=== PATIENT | female | born 1990 ===

== ENCOUNTER 2020-02-08 11:06 | Outpatient (REF) | payer OTHER, MEDICAID, SELFPAY ==
[2020-02-08 16:54] LABS: COVID-19 Test Negative (Negative)
== END 2020-02-08 11:07 | disposition home or self-care (01) ==
LOC: HO.LAB 11:06
PROVIDERS: PCP Nurse Practitioner Family; Visit Provider Internal Medicine
DX: Z20.828 Contact with and (suspected) exposure to other viral communicable diseases (principal)
CPT/HCPCS: 36415; 87635

== ENCOUNTER 2020-02-11 08:16 | Outpatient (REF) | payer OTHER, MEDICAID, SELFPAY ==
[2020-02-11 13:53] LABS: CT PCR NOT DETECTED (Not Detect.); NG PCR NOT DETECTED (Not Detect.)
[2020-02-12 12:00] LABS: BV Int Neg Control Negative (Negative); BV Int Pos Control Positive (Positive)
== END 2020-02-11 08:17 | disposition home or self-care (01) ==
LOC: HO.LNP 08:16
PROVIDERS: PCP Nurse Practitioner Family; Referring Provider Nurse Practitioner Family; Visit Provider Obstetrics & Gynecology
DX: Z34.03 Encounter for supervision of normal first pregnancy, third trimester (principal); Z11.3 Encounter for screening for infections with a predominantly sexual mode of transmission; Z80.3 Family history of malignant neoplasm of breast; Z3A.36 36 weeks gestation of pregnancy
CPT/HCPCS: 87081; 87480; 87491; 87510; 87591; 87660

== ENCOUNTER → 2020-02-19 08:33 | Outpatient (BNVA) | payer OTHER, MEDICAID, SELFPAY | PROVIDERS: PCP Nurse Practitioner Family; Visit Provider Advanced Practice Midwife | DX: Z76.89 Persons encountering health services in other specified circumstances (principal) ==

== ENCOUNTER → 2020-02-25 08:19 | Outpatient (BNVA) | payer OTHER, MEDICAID, SELFPAY | PROVIDERS: PCP Nurse Practitioner Family; Visit Provider Advanced Practice Midwife | DX: Z76.89 Persons encountering health services in other specified circumstances (principal) ==

== ENCOUNTER → 2020-03-03 08:32 | Outpatient (BNVA) | payer OTHER, MEDICAID, SELFPAY | PROVIDERS: Visit Provider Advanced Practice Midwife | DX: O36.8130 Decreased fetal movements, third trimester, not applicable or unspecified (principal); O99.891 Other specified diseases and conditions complicating pregnancy; M25.561 Pain in right knee; M25.562 Pain in left knee; O36.8330 Maternal care for abnormalities of the fetal heart rate or rhythm, third trimester, not applicable or unspecified; Z3A.39 39 weeks gestation of pregnancy | CPT/HCPCS: 59025 ==

== ENCOUNTER 2020-03-03 14:50 | Outpatient (REF) | payer OTHER, MEDICAID, SELFPAY ==
--- NOTE | 2020-03-03 14:55 | US_ITS ---
EXAMINATION: US OBSTETRICAL (BIOPHYSICAL PROFILE) CLINICAL INFORMATION: Decreased movements. Assess BPP COMPARISON: Obstetrical ultrasound 10/09/2019, 08/21/2019 TECHNIQUE: Ultrasound of the pelvis is performed. Biophysical profile is performed over 30 minutes with assessment of breathing, gross body movement, tone, and qualitative amniotic fluid volume. Each matrix is scored 0 or 2, depending if the metric is present. Maximum total score possible is 8. Examination is not intended to assess for anomalies. FINDINGS: POSITION: Cephalic PLACENTA: Posterior AMNIOTIC FLUID INDEX: 12.5 cm CARDIAC ACTIVITY: 135 beats per minute BIOPHYSICAL PROFILE: Motion: 2 Tone: 2 Breathin Amniotic Fluid: 2 Total score: 8 US/US OB biophysical profile IMPRESSION: 1. Single intrauterine gestation in cephalic position with posterior placenta. 2. Total biophysical score is 8 (scale 0-8). 3. Amniotic fluid index 12.5 cm. 4. cardiac activity 135 beats per minute.
== END 2020-03-03 14:51 | disposition home or self-care (01) ==
LOC: HO.US 14:50
PROVIDERS: PCP Nurse Practitioner Family; Visit Provider Advanced Practice Midwife
DX: O36.8190 Decreased fetal movements, unspecified trimester, not applicable or unspecified (principal); Z3A.00 Weeks of gestation of pregnancy not specified
CPT/HCPCS: 76819

== ENCOUNTER 2020-03-08 08:17 | Outpatient (REF) | payer OTHER, MEDICAID, SELFPAY ==
--- NOTE | 2020-03-08 10:46 | US_ITS ---
EXAMINATION: ULTRASOUND OB BIOPHYSICAL PROFILE. CLINICAL INFORMATION: Postterm, mild variable deceleration with NST. COMPARISON: None TECHNIQUE: Routine grayscale imaging of pelvis was performed. FINDINGS: The fetus is in cephalic position with posterior placenta grade 3. Biophysical profile is 8/8. heart rate measures 142 bpm MONISHA is 12.74. US/US OB biophysical profile IMPRESSION: Single live intrauterine fetus in cephalic position. The biophysical profile is 8/8 .
== END 2020-03-08 08:18 | disposition home or self-care (01) ==
LOC: HO.US 08:17
PROVIDERS: PCP Nurse Practitioner Family; Referring Provider Nurse Practitioner Family; Visit Provider Advanced Practice Midwife
DX: O48.0 Post-term pregnancy (principal)
CPT/HCPCS: 59025; 76819

== ENCOUNTER 2020-03-11 13:00 | Outpatient (REF) | payer OTHER, MEDICAID, SELFPAY ==
--- NOTE | ~2020-03-11 | US_ITS ---
EXAMINATION: OBSTETRICAL ULTRASOUND, Follow up HISTORY: 41-year-old at the 22.3 weeks of gestation AMA Follow-up anatomy COMPARISON: 02/12/2020 TECHNIQUE: Real time transabdominal imaging with color and M-mode Doppler. PRESENTATION: Vertex PLACENTA LOCATION: Right lateral without previa AMNIOTIC FLUID: Normal MEASUREMENTS: 1. Biparietal Diameter: 5.44 cm; 22.4 wks 2. Head Circumference: 20.8 cm; 23.0 wks 3. Abdominal Circumference: 18.0 cm; 23.0 wks 4. Femur Length: 4.2 cm; 23.5 wks 5. Heart Rate: 147 beats per minute WEIGHT: Estimated weight is 567 grams (1 lbs 4 oz) -- 79 %. Normal views of lateral cerebral ventricle, profile, nose/lips, 4ch view, LVOT, RVOT, three-vessel view, 3 vessel trachea view, ductal and aortic arches, spine and gender. Synechiae noted in the lower uterine segment. Cervix measured 4.1 cm on transabdominal view. GESTATIONAL AGE: 1. Established GA: 22.3 wks 2. GA from AUA: 23.1 wks ESTIMATED DATE OF DELIVERY: 1. Established EUFEMIA: 07/12/2020 2. EUFEMIA from AUA: 07/07/2020 US/US OB follow up IMPRESSION: 1. A single fetus with appropriate interval growth. 2. Previously limited views of the anatomy were seen as listed above. No abnormalities were noted in visualized anatomy. 3. This completes the survey. 4. 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 She had the low risk serum aneuploidy screening. I reassured her that the uterine synechiae are associated with benign OB outcome. She had the 2 full-term vaginal deliveries. She was informed that the baseline instance of congenital abnormalities and defects in the general population is approximately 3-5%. Not all these conditions are diagnosable in utero. RECOMMENDATIONS: 1. An interval growth evaluation at approximately 24 weeks is suggested. (Not scheduled) Thank you very much for this referral. Visiting time 25 minutes. Majority of this visit was spent reviewing the ultrasound findings as well as her care.
== END 2020-03-11 13:01 | disposition home or self-care (01) ==
LOC: HO.US 13:00
PROVIDERS: PCP Nurse Practitioner Family; Visit Provider Advanced Practice Midwife
DX: O48.0 Post-term pregnancy (principal); Z3A.00 Weeks of gestation of pregnancy not specified
CPT/HCPCS: 76816

== ENCOUNTER → 2020-04-25 10:30 | Outpatient (BNVA) | payer OTHER, MEDICAID, SELFPAY | PROVIDERS: PCP Nurse Practitioner Family; Visit Provider Advanced Practice Midwife | DX: Z76.89 Persons encountering health services in other specified circumstances (principal) ==

== ENCOUNTER 2020-07-25 08:23 | Outpatient (REF) | payer OTHER, MEDICAID, SELFPAY ==
[2020-07-25 13:12] LABS: CT PCR NOT DETECTED (Not Detect.); NG PCR NOT DETECTED (Not Detect.)
== END 2020-07-25 08:24 | disposition home or self-care (01) ==
LOC: HO.LAB 08:23
PROVIDERS: PCP Nurse Practitioner Family; Visit Provider Advanced Practice Midwife
DX: Z01.419 Encounter for gynecological examination (general) (routine) without abnormal findings (principal); Z20.2 Contact with and (suspected) exposure to infections with a predominantly sexual mode of transmission
CPT/HCPCS: 81025; 87491; 87591

== ENCOUNTER 2021-07-27 08:55 | Outpatient (REF) | payer OTHER, SELFPAY ==
[2021-07-27 21:42] LABS: CT PCR NOT DETECTED (Not Detect.); NG PCR NOT DETECTED (Not Detect.)
[2021-07-28 09:00] LABS: BV Int Neg Control Negative (Negative); BV Int Pos Control Positive (Positive)
[2021-07-29 17:17] LABS: HPV mRNA E6/E7 rflx Not Detected (Not Detected)
== END 2021-07-27 08:56 | disposition home or self-care (01) ==
LOC: HO.LAB 08:55
PROVIDERS: PCP Nurse Practitioner Family; Visit Provider Advanced Practice Midwife
DX: Z01.419 Encounter for gynecological examination (general) (routine) without abnormal findings (principal); Z11.51 Encounter for screening for human papillomavirus (HPV); Z20.2 Contact with and (suspected) exposure to infections with a predominantly sexual mode of transmission
CPT/HCPCS: 81025; 87480; 87491; 87510; 87591; 87624; 87660; 88142

== ENCOUNTER → 2021-08-14 12:08 | Outpatient (BNVA) | payer OTHER, SELFPAY | PROVIDERS: PCP Nurse Practitioner Family; Visit Provider Advanced Practice Midwife | DX: Z30.09 Encounter for other general counseling and advice on contraception (principal) | CPT/HCPCS: Q3014 ==

== ENCOUNTER 2022-12-04 09:07 | Outpatient (REF) | payer OTHER, SELFPAY ==
[2022-12-04 12:35] LABS: Thyroid Stimulating Hormone 0.47 uIU/mL (0.32-4.0)
[2022-12-05 04:25] LABS: CT PCR NOT DETECTED (Not Detect.); NG PCR NOT DETECTED (Not Detect.)
[2022-12-05 15:33] LABS: BV Int Neg Control Negative (Negative); BV Int Pos Control Positive (Positive)
[2022-12-05 18:30] LABS: DHEA Sulfate 203 mcg/dL (19-237); Follicle Stimulating Hormone 9.7 mIU/mL; Prolactin 6.5 ng/mL
[2022-12-08 17:34] LABS: Testosterone, Free 3.6 pg/mL (0.1-6.4); Testosterone, Total 20 ng/dL (2-45)
== END 2022-12-04 09:08 | disposition home or self-care (01) ==
LOC: HO.LAB 09:07
PROVIDERS: PCP Nurse Practitioner Family; Visit Provider Advanced Practice Midwife
DX: N92.6 Irregular menstruation, unspecified (principal); L68.0 Hirsutism; Z20.2 Contact with and (suspected) exposure to infections with a predominantly sexual mode of transmission
CPT/HCPCS: 0353U; 82627; 83001; 83498; 84146; 84402; 84403; 84443; 87480; 87510; 87660

== ENCOUNTER 2022-12-04 09:07 | Outpatient (AMB) | payer OTHER, SELFPAY ==
--- NOTE | 2022-12-04 09:09 | A.OFFVIS_ITS ---
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 Scribed for PEACE Thompson by Juli Moon medical parasitologist, on 12/04/2022 at 9:20 am EST. Corporate Coordinator: Corporate Coordinator Present (Ling) Allergies No Known Allergies Allergy (Verified 12/04/22 09:10) Is last menstrual period known: Yes Last menstrual period: 11/22/22 HPI HPI Comments History of Present Illness Details She is a premenopausal woman presenting for annual exam. She is still interested in Mirena and had troubling scheduling for insertion in office within the past couple of months. Reports cysts in groin area. Reports having hirsutism from since her 20's and believes its due to BC in her past. She denies having PCOS testing in the past. Irregular menses which tend to come 3-5 days late every cycle. Also she reports low libido. She admits to eating healthy and tries to stay active with exercise. Denies vaginal itching and irritation. STD screening offered; she accepts. Denies family hx of colon and ovarian cancer. Last pap smear 07/27/21. [facility] Medical History control counseling Hirsutism Irregular menses Low libido Migraine with aura Morbid obesity Family History Paternal Grandmother Breast cancer Maternal Grandfather Diabetes mellitus Social History Alcohol intake: never Sexual orientation: Straight/Heterosexual Gender identity: Female Female Reproductive History Menstrual Age of Menarche: 13 Date of last menstrual period: 11/22/22 control method: none Total pregnancies: 2 Full term: 1 Number of Living Children: 1 Date of last pap smear: 07/27/21 (neg pap and hpv) Physical Exam Vital Signs: Last Vital Signs BP 124/80 12/04/22 09:10 BMI result Body Mass Index 37.4 Const General: cooperative, healthy appearing, no acute distress, well developed and alert Orientation/consciousness: patient oriented x3 HEENT Other: facial hair growth Head: Yes normal to inspection Eyes General: appearance normal, both eyes and all related structures Neck Neck: Yes normal visual inspection Thyroid: Thyroid normal Chest Chest palpation & inspection: normal inspection of the chest Breast/axilla inspection: normal inspection of the breasts (no puckering, dimpling, peau de orange, retraction, discharge, masses) Breast/axilla palpation: normal palpation of the breasts Resp Effort & Inspection: normal respiratory effort GI Other: low transverse scarring Inspection: Yes normal to inspection Palpation (GI): Soft to palpation (to palpation) Rectal Exam - Female: deferred Other: upper inner right thigh and gluteal area small folliculitis lesion; no drainage General: Yes bladder normal to inspection External Female Exam: normal external appearance and normal appearance of the urethra Speculum Exam - Vagina: normal appearance of the vagina, normal palpation and normal vaginal discharge Speculum Exam - Cervix: normal appearance of the cervix and normal palpation Bimanual exam- vagina & uterus: normal palpation and normal palpation Bimanual Exam- Adnexa, other: normal adnexae and no masses Skin General skin exam: no rashes or lesions noted Neuro General: patient oriented x3 Cognition (Neuro): normal cognition Extrem General: Yes normal to inspection Psych Attitude: cooperative Thought process: Normal thought process present Assessment & Plan Assessment & Plan (1) Encounter for annual routine gynecological examination: Code(s): Z01.419 - Encounter for gynecological examination (general) (routine) without abnormal findings Plan: Discussed: Current recommendations for pap smears per ASCCP guidelines Breast awareness and periodic self breast exams. Maintaining a healthy lifestyle including a well balanced diet and routine exercise. Encouraged to use condoms for STD and prevention. Reviewed IUD insertion procedure and instructed to take ibuprofen with food 1 hour prior to procedure. Contact office when having next menses. Advised to wash groin area with antimicrobial soap, rinse, dry well and wear cotton underwear. PCOS workup labs/US ordered. Follow up for lab results and to discuss low libido in person. BV testing and GC/CT panel done today. Await results and treat accordingly. All of her questions and concerns were addressed to the best of my ability. RTO in one year for AG. (2) control counseling: Code(s): Z30.09 - Encounter for other general counseling and advice on contraception (3) Low libido: Code(s): R68.82 - Decreased libido (4) Hirsutism: Code(s): L68.0 - Hirsutism (5) Irregular menses: Code(s): N92.6 - Irregular menstruation, unspecified Orders: Orders Bacterial Vaginosis Panel Today Z20.2 - Contact with and (suspected) exposure to infections with a predominantly sexual mode of transmission CT NG by PCR Today Z20.2 - Contact with and (suspected) exposure to infections with a predominantly sexual mode of transmission 17 Hydroxyprogesterone Today L68.0 - Hirsutism, N92.6 - Irregular menstruation, unspecified DHEA Sulfate Today L68.0 - Hirsutism, N92.6 - Irregular menstruation, unspecified Testosterone, Free/Total Today L68.0 - Hirsutism, N92.6 - Irregular menstruation, unspecified Follicle Stimulating Hormone Today L68.0 - Hirsutism, N92.6 - Irregular menstruation, unspecified Prolactin Today L68.0 - Hirsutism, N92.6 - Irregular menstruation, unspecified Thyroid Stimulating Hormone Today L68.0 - Hirsutism, N92.6 - Irregular menstruation, unspecified US pelvic and transvaginal Today L68.0 - Hirsutism, N92.6 - Irregular menstruation, unspecified Coding Level of Care Code Est Pt Prev Care 18-39y(13136) Diagnoses Encounter for annual routine gynecological examination Z01.419 control counseling Z30.09 Low libido R68.82 Hirsutism L68.0 Irregular menses N92.6
--- OUTSIDE RECORDS SUMMARY | 2022-12-04 09:09 | XMS_ITS | Continuity of Care Document ---
Author Name Unknown Organization [facility] Address [address] [place] [address]- Care Team Providers Care Right Of Way Buyer Name Role Phone Alana KNIGHT, Tatianna Primary Care Physician Encounter [facility] [place] Date(s): 08/31/21 - 09/07/21 [facility] [address] [place] [address]- Encounter Diagnosis Severe obesity(Discharge Diagnosis) - 08/31/21 Attending Physician: Megan Rodarte NP Allergies, Adverse Reactions, Alerts No Known Medication Allergies Immunizations Given and Recorded Vaccine Date Status Refusal Reason tetanus/diphtheria/pertussis, acel(Tdap) 12/16/19 Recorded Measles/Mumps/Rubella Virus Vaccine 07/30/16 Recor ded Measles/Mumps/Rubella Virus Vaccine 02/01/12 Recor ded Human Papillomavirus Vaccine 02/01/12 Recorded Medications No Known Medications Problem List Condition Effective Dates Status Health Status Inform ant Severe obesity(Confirmed) Active Diagnosis Diagnosis Type Effective Dates Health Status Cl inical Service Informant Severe obesity Discharge Diagnosis 08/31/21 Vital Signs Most recent to oldest [Reference Range]: 1 Height 166 cm (08/31/21 10:17 AM) Weight 111.5 kg (08/31/21 10:17 AM) Body Mass Index [18.5-24.99] 40.46 *>HHI* (08/31/21 10:17 AM) Weight Obtained Via Patient/family state d (08/31/21 10:17 AM) Social History Social History Type Response Smoking Status Former smoker, quit more than 30 days ago; Other: On and off; entered on: 01/02/21 Sex
--- OUTSIDE RECORDS SUMMARY | 2022-12-04 09:09 | XMS_ITS | Continuity of Care Document ---
Author Name Unknown Organization [facility] Address [address] [place] [address]- Care Team Providers Care Automotive Maintenance Technician Name Role Phone Tatianna Warner NP Primary Care Physician [place] [facility] [place]21 - 01/04/22 [facility] [address] [place], [place] [address] Allergies, Adverse Reactions, Alerts No Known Medication Allergies Immunizations Given and Recorded Vaccine Date Status Refusal Reason tetanus/diphtheria/pertussis, acel(Tdap) 12/16/19 Recorded Measles/Mumps/Rubella Virus Vaccine 07/30/16 Recor ded Measles/Mumps/Rubella Virus Vaccine 02/01/12 Recor ded Human Papillomavirus Vaccine 02/01/12 Recorded Medications Right Wrist Brace Right Wrist Brace, See Instructions, # 1 each, Refills 0, Tot. Refills 0, Maintenance, Dx: Right Wrist Pain/tendonitis, 12/04/21 16:55:00 EDT, Supply Start Date: 12/04/21 Status: Ordered Problem List Condition Effective Dates Status Health Status Inform ant Severe obesity(Confirmed) Active Social History Social History Type Response Smoking Status Former smoker, quit more than 30 days ago; Other: On and off; entered on: 01/02/21 Sex Care Team Personnel Name: Tatianna Warner NP Address: [address] [place] [id number]
--- OUTSIDE RECORDS SUMMARY | 2022-12-04 09:09 | XMS_ITS | Continuity of Care Document ---
Author Name Unknown Organization [facility] Address [address] [place] [address]- Care Team Providers Care Group Marketing Vp Name Role Phone Tatianna Warner NP Primary Care Physician [phone] [place] [facility] [place] 03/13/21 - 03/20/21 [facility] [address] [place] [address]- Encounter Diagnosis Generalized headaches(Discharge Diagnosis) - 03/13/21 Weight gain(Discharge Diagnosis) - 03/13/21 Attending Physician: Tatianna Warner NP Allergies, Adverse Reactions, Alerts No Known Medication Allergies Immunizations Given and Recorded Vaccine Date Status Refusal Reason tetanus/diphtheria/pertussis, acel(Tdap) 12/16/19 Recorded Measles/Mumps/Rubella Virus Vaccine 07/30/16 Recor ded Measles/Mumps/Rubella Virus Vaccine 02/01/12 Recor ded Human Papillomavirus Vaccine 02/01/12 Recorded Medications norethindrone 0.35 mg oral tablet 0 Refills, Maintenance, 01/02/21 16:13:00 EDT, Partial fill upon patient request if the prescription is for a schedule II opioid drug. Start Date: 01/02/21 Status: Ordered Problem List Diagnosis Diagnosis Type Effective Dates Health Status Clinical Service Informant Generalized headaches Discharge Diagnosis 03/13/21 Weight gain Discharge Diagnosis 03/13/21 Vital Signs Most recent to oldest [Reference Range]: 1 2 Height 166 cm (03/13/21 9:21 AM) 166 cm (03/13/21 9:20 AM) Weight 102.5 kg (03/13/21 9:21 AM) 102.5 kg (03/13/21 9:07 AM) Oxygen Saturation [94-100 %] 100 % (03/13/21 9:07 AM) Pulse Rate [55-90 bpm] 98 bpm *H* (03/13/21 9:07 AM) Body Mass Index [18.5-24.99] 37.2 *>HHI* (03/13/21 9:21 AM) Blood Pressure [90-138/55-84 mm Hg] 100/ 60mm Hg (03/13/21 9:07 AM) Temperature [96.8-100.4 DegF] 98.2 DegF (03/13/21 9:07 AM) Mode of Delivery (Oxygen) Room air (03/13/21 9:07 AM) Blood pressure sites Arm, right (03/13/21 9:07 AM) Temperature Route Oral (03/13/21 9:07 AM) Weight Obtained Via Standing scale (03/13/21 9:07 AM) Social History Social History Type Response Smoking Status Former smoker, quit more than 30 days ago; Other: On and off; entered on: 01/02/21 Sex
--- OUTSIDE RECORDS SUMMARY | 2022-12-04 09:09 | XMS_ITS | Continuity of Care Document ---
Author Name Unknown Organization [facility] Address [address] [place] [address]- Care Team Providers Care Tool And Die Assembler Name Role Phone Tatianna Warner NP Primary Care Physician Encounter [facility] [place] Date(s): 12/04/21 - 12/11/21 [facility] [address] [place] [address]- Encounter Diagnosis Left knee injury(Discharge Diagnosis) - 12/04/21 Left knee pain(Discharge Diagnosis) - 12/04/21 Right wrist pain(Discharge Diagnosis) - 12/04/21 Attending Physician: Angelica Pritchard MD Allergies, Adverse Reactions, Alerts No Known Medication [...] Dates Health Status Cl inical Service Informant Left knee injury Discharge Diagnosis 12/04/21 Left knee pain Discharge Diagnosis 12/04/21 Right wrist pain Discharge Diagnosis 12/04/21 Vital Signs Most recent to oldest [Reference Range]: 1 Height 166 cm (12/04/21 4:30 PM) Social History Social History Type Response Smoking Status Former smoker, quit more than 30 days ago; Other: On and off; entered on: 01/02/21 Sex
--- OUTSIDE RECORDS SUMMARY | 2022-12-04 09:09 | XMS_ITS | Continuity of Care Document ---
Author Name Unknown Organization [facility] Address [address] [place] [address]- Care Team Providers Care Union Representative Name Role Phone Tatianna Warner NP Primary Care Physician [place] [facility] [place](s): 07/28/21 - 08/27/[address] [facility] [address] [place] [address]- Allergies, Adverse Reactions, Alerts No Known Medication [...] opioid drug. Start Date: 01/02/21 Status: Ordered Social History Social History Type Response Smoking Status Former smoker, quit more than 30 days ago; Other: On and off; entered on: 01/02/21 Sex
--- OUTSIDE RECORDS SUMMARY | 2022-12-04 09:09 | XMS_ITS | Continuity of Care Document ---
Author Name Unknown Organization [facility] Address [address] [place] [address]- Care Team Providers Care Lipcoat Sprayer Name Role Phone Tatianna Warner NP Primary Care Physician [place] [facility] [place] 12/18[place]21 - 01/17/22 [facility] [address] [place] [address]- Allergies, Adverse Reactions, Alerts No Known Medication [...] Team Personnel Name: Tatianna Warner NP Address: [address] [place] [address]-
--- OUTSIDE RECORDS SUMMARY | 2022-12-04 09:09 | XMS_ITS | Continuity of Care Document ---
Author Name Unknown Organization [facility] Address [address] [place] [address]- Care Team Providers Care Partner Integration Planner Name Role Phone Tatianna Warner NP Primary Care Physician [place] [facility] [place]16[place] 01/26/21 [facility] [address] [place] [address]- Attending Physician: Not on Staff, Attending MD Allergies, Adverse Reactions, Alerts No Known [...]
--- OUTSIDE RECORDS SUMMARY | 2022-12-04 09:09 | XMS_ITS | Continuity of Care Document ---
Author Name Unknown Organization [facility] Address [address] [place] [address]- Care Team Providers Care Pharmacists Name Role Phone Tatianna Warner NP Primary Care Physician [place] [facility] [place] 01/02[place] 01/09/21 [facility] [address] [place] [address]- Encounter Diagnosis Right knee pain(Discharge Diagnosis) - 01/02/21 Weight gain(Discharge Diagnosis) - 01/02/21 Attending Physician: Tatianna Warner NP Allergies, Adverse [...] Dates Health Status Cl inical Service Informant Right knee pain Discharge Diagnosis 01/02/21 Weight gain Discharge Diagnosis 01/02/21 Social History Social History Type Response Smoking Status Former smoker, quit more than 30 days ago; Other: On and off; entered on: 01/02/21 Sex
--- OUTSIDE RECORDS SUMMARY | 2022-12-04 09:09 | XMS_ITS | Continuity of Care Document ---
Author Name Unknown Organization [facility] Address [address] [place] [address]- Care Team Providers Care Echo Vascular Technologist Name Role Phone Tatianna Warner NP Primary Care Physician [place] [facility] [place] 12/04/21 - 01/03/22 [facility] [address] [place] [address]- Attending Physician: Jennifer Champion Admitting Physician: AdmtrJennifer Referring Physician: Admtr ArHaris Allergies, Adverse Reactions, Alerts No Known Medication [...] Team Personnel Name: Tatianna Warner NP Address: [address] [place] [id number]
--- OUTSIDE RECORDS SUMMARY | 2022-12-04 09:09 | XMS_ITS | Continuity of Care Document ---
Author Name Unknown Organization [facility] Address [address] [place] [address]- Care Team Providers Care System Trainer Name Role Phone Not on Staff, PCP Primary Care Physician Unavail able Encounter [facility] Date(s): 11/17/20 - 12/17/20 [facility] [address] [place] [address]-
--- OUTSIDE RECORDS SUMMARY | 2022-12-04 09:09 | XMS_ITS | Continuity of Care Document ---
Author Name Unknown Organization [facility] Address [address] [place] [address]- Care Team Providers Care Service Secretary Name Role Phone Tatianna Warner NP Primary Care Physician Encounter [facility] Date(s): 08/31/21 - 09/30/21 [facility] [address] [place] [address]- Attending Physician: Jennifer Champion Admitting Physician: Jennifer Champion Referring Physician: Jennifer Champion Allergies, Adverse Reactions, Alerts No Known Medication Allergies Immunizations Given and Recorded Vaccine Date Status Refusal Reason tetanus/diphtheria/pertussis, acel(Tdap) 12/16/19 Recorded Measles/Mumps/Rubella Virus Vaccine 07/30/16 Recor ded Measles/Mumps/Rubella Virus Vaccine 02/01/12 Recor ded Human Papillomavirus Vaccine 02/01/12 Recorded Problem List Condition Effective Dates Status Health Status Inform ant Severe obesity(Confirmed) Active Social History Social History Type Response Smoking Status Former smoker, quit more than 30 days ago; Other: On and off; entered on: 01/02/21 Sex
[2022-12-04 09:10] VITALS: BP 124/80; BMI 37.4
--- OUTSIDE RECORDS SUMMARY | 2022-12-04 09:10 | XMS_ITS | Continuity of Care Document ---
Author Name Unknown Organization [facility] Address [address] [place] [address]- Care Team Providers Care Grey Goods Marker Name Role Phone Tatianna Warner NP Primary Care Physician [phone] Encounter [facility] Date(s): 04/18/21 - 05/18/21 [facility] [address] [place] [address]- Allergies, Adverse Reactions, Alerts No Known Medication [...]
--- OUTSIDE RECORDS SUMMARY | 2022-12-04 09:10 | XMS_ITS | Continuity of Care Document ---
Author Name Unknown Organization [facility] [place] [facility] Address [address] [place] [address]- Care Team Providers Care Site Superintendent Name Role Phone Tatianna Warner NP Primary Care Physician [phone] Encounter [facility] Date(s): 04/12/21 - 05/12/21 [facility] [address] [place] [address]- Allergies, Adverse Reactions, Alerts No Known Medication [...]
--- OUTSIDE RECORDS SUMMARY | 2022-12-04 09:10 | XMS_ITS | Continuity of Care Document ---
Author Name Unknown Organization [facility] Address [address] [place] [address]- Care Team Providers Care Tool Straightener Name Role Phone Tatianna Warner NP Primary Care Physician Encounter [facility] [place](s): 01/13/21 - 01/20/21 [facility] [address] [place] [address]- Encounter Diagnosis Well adult exam(Discharge Diagnosis) - 01/13/21 Frequent headaches(Discharge Diagnosis) - 01/14/21 Bilateral knee pain(Discharge Diagnosis) - 01/14/21 Weight gain(Discharge Diagnosis) - 01/14/21 Attending Physician: Katelyn Heard MD Referring Physician: Tatianna Warner NP Allergies, Adverse Reactions, [...] Dates Health Status Cl inical Service Informant Well adult exam Discharge Diagnosis 01/13/21 Frequent headaches Discharge Diagnosis 01/14/21 Bilateral knee pain Discharge Diagnosis 01/14/21 Weight gain Discharge Diagnosis 01/14/21 Vital Signs Most recent to oldest [Reference Range]: 1 Weight 103.2 kg (01/13/21 8:34 AM) Oxygen Saturation [94-100 %] 97 % (01/13/21 8:34 AM) Pulse Rate [55-90 bpm] 80 bpm (01/13/21 8:34 AM) Blood Pressure [90-138/55-84 mm Hg] 98/5 6mm Hg (01/13/21 8:34 AM) Mode of Delivery (Oxygen) Room air (01/13/21 8:34 AM) Blood pressure sites Arm, left (01/13/21 8:34 AM) Weight Obtained Via Standing scale (01/13/21 8:34 AM) Social History Social History Type Response Smoking Status Former smoker, quit more than 30 days ago; Other: On and off; entered on: 01/02/21 Sex
--- OUTSIDE RECORDS SUMMARY | 2022-12-04 09:10 | XMS_ITS | Continuity of Care Document ---
Author Name Unknown Organization [facility] Address [address] [place] [address]- Care Team Providers Care Lottery Clerk Name Role Phone Tatianna Warner NP Primary Care Physician [phone] [place] [facility] [place] 03/13/21 - 04/12/21 [facility] [address] [place], [place] [address] Attending Physician: Jennifer Champion Admitting Physician: Jennifer Champion Referring Physician: AdmtrJennifer Allergies, Adverse Reactions, Alerts No Known Medication [...]
--- OUTSIDE RECORDS SUMMARY | 2022-12-04 09:10 | XMS_ITS | Continuity of Care Document ---
Author Name Unknown Organization [facility] Adult Address [address] [place] [address]- Care Team Providers Care Bacteriologist Industrial Name Role Phone Tatianna Warner NP Primary Care Physician Encounter [facility] Date(s): 08/22/21 - 09/21/21 [facility] [address], [place] [address] Allergies, Adverse Reactions, Alerts No Known Medication [...]
--- OUTSIDE RECORDS SUMMARY | 2022-12-04 09:10 | XMS_ITS | Continuity of Care Document ---
Author Name Unknown Organization [facility] Adult Address [address] [place] [address]- Care Team Providers Care Kier Hand Name Role Phone Tatianna Warner NP Primary Care Physician [phone] Encounter [facility] Date(s): 01/10/21 - 02/09/21 [facility] [address] [place] [address]- Allergies, Adverse Reactions, Alerts No Known Medication [...]
== END 2022-12-04 09:57 | disposition home or self-care (01) ==
LOC: HO.HWS 09:07
PROVIDERS: PCP Nurse Practitioner Family; Visit Provider Advanced Practice Midwife
DX: Z01.419 Encounter for gynecological examination (general) (routine) without abnormal findings (principal); R68.82 Decreased libido; L68.0 Hirsutism; N92.6 Irregular menstruation, unspecified
CPT/HCPCS: 99395

== ENCOUNTER 2022-12-04 09:36 | Outpatient (REF) | payer OTHER, SELFPAY | END 2022-12-04 09:37 | disposition home or self-care (01) | LOC: HO.LNP 09:36 | PROVIDERS: Visit Provider Advanced Practice Midwife | DX: Z13.89 Encounter for screening for other disorder (principal) ==

== ENCOUNTER 2022-12-07 13:07 | Outpatient (REF) | payer OTHER, SELFPAY ==
--- NOTE | ~2022-12-07 | US_ITS ---
EXAMINATION: US PELVIS COMPLETE US PELVIS ENDOVAGINAL CLINICAL INFORMATION: Irregular menstruation COMPARISON: None. TECHNIQUE: Transabdominal and transvaginal images of the pelvis were obtained. FINDINGS: UTERUS: Anteverted. Normal size and contour, measuring 8.0 x 4.4 x 4.9 cm (cervix to fundus x AP x transverse). Uniform, homogeneous endometrium measures 0.8 cm in width. RIGHT OVARY: Normal size and echogenicity measuring 3.8 x 2.8 x 3.0 cm, volume 6.7 mL. Follicles noted in the right ovary. LEFT OVARY: Normal size and echogenicity measuring 3.1 x 1.8 x 2.4 cm, volume 7.0 mL. Follicles noted in the left ovary. FREE FLUID: Trace free fluid noted in the region of the right adnexa. US/US pelvic and transvaginal IMPRESSION: 1. Bilateral ovarian follicles noted. 2. Trace free fluid noted in the region of the right adnexa.
== END 2022-12-07 13:08 | disposition home or self-care (01) ==
LOC: HO.US 13:07
PROVIDERS: PCP Nurse Practitioner Family; Visit Provider Advanced Practice Midwife
DX: N92.6 Irregular menstruation, unspecified (principal); L68.0 Hirsutism
CPT/HCPCS: 76830; 76856

== ENCOUNTER 2022-12-26 15:37 | Outpatient (AMB) | payer OTHER, SELFPAY ==
[2022-12-26 15:38] VITALS: BP 112/72; BMI 37.4
--- NOTE | 2022-12-26 15:38 | A.OFFVIS_ITS ---
Intake Vital Signs 12/26/22 15:38 Height 5 ft 5 in Weight 225 lb BMI 37.4 BP 112/72 Intake Visit Reasons: Lab follow up/ok per KM Intake Note: The patient agreed to use of a phlebotomist medical lab assistant during this encounter. Scribed for PEACE Thompson by Juli Moon phlebotomist medical lab assistant, on 12/26/2022 at 3:56 pm EST. Allergies No Known Allergies Allergy (Verified 12/26/22 15:42) Is last menstrual period known: Yes Last menstrual period: 12/20/22 HPI HPI Comments History of Present Illness Details She is here to discuss US and lab results regarding hirsutism and was interested in Mirena IUD but now is interested in tubal ligation due to scheduling issue. Upset due to the long process of planning to have a Mirena inserted and not having an appt. in a timely fashion, and now to be told they are out of supplies today. Reports her menses are normal. LMP 12/20/22. [facility] Medical History control counseling Hirsutism Irregular menses Low libido Migraine with aura Morbid obesity Family History Paternal Grandmother Breast cancer Maternal Grandfather Diabetes mellitus Social History Alcohol intake: never Sexual orientation: Straight/Heterosexual Gender identity: Female Female Reproductive History Menstrual Age of Menarche: 13 Date of last menstrual period: 12/20/22 Physical Exam Vital Signs: Last Vital Signs BP 112/72 12/26/22 15:38 BMI result Body Mass Index 37.4 Const General: cooperative, healthy appearing, comfortable, no acute distress, well developed, alert and awake Results Reviewed Results Reviewed: EXAMINATION: US PELVIS COMPLETE US PELVIS ENDOVAGINAL CLINICAL INFORMATION: Irregular menstruation COMPARISON: None. TECHNIQUE: Transabdominal and transvaginal images of the pelvis were obtained. FINDINGS: UTERUS:? Anteverted.? Normal size and contour, measuring 8.0 x 4.4 x 4.9 cm (cervix to fundus x AP x transverse). Uniform, homogeneous endometrium measures? 0.8 cm in width. RIGHT OVARY:? Normal size and echogenicity measuring 3.8 x 2.8 x 3.0 cm, volume 6.7 mL. Follicles noted in the right ovary. LEFT OVARY:? Normal size and echogenicity measuring 3.1 x 1.8 x 2.4 cm, volume 7.0 mL. Follicles noted in the left ovary. FREE FLUID: Trace free fluid noted in the region of the right adnexa. US/US pelvic and transvaginal IMPRESSION: 1.? Bilateral ovarian follicles noted. 2.? Trace free fluid noted in the region of the right adnexa. Laboratory Tests 12/04/22 12/04/22 10:26 10:26 TSH 0.47 FSH 9.7 Prolactin 6.5 Total Testosterone 20 Fr Testosterone Dialys 3.6 DHEA Sulfate 203 17-Hydroxyprogesterone 45 Assessment & Plan Assessment & Plan (1) Encounter to discuss test results: Code(s): Z71.2 - Person consulting for explanation of examination or test findings Plan: Discussed: US and lab results; normal. All of her questions and concerns were addressed to the best of my ability. (2) control counseling: Code(s): Z30.09 - Encounter for other general counseling and advice on contraception Plan: Offered to schedule consult for tubal ligation with Dr. Ordonez. She prefers to call back if she changes her decision about Mirena insertion. She was informed the Mirena supply is due in tomorrow. (3) Hirsutism: Code(s): L68.0 - Hirsutism Coding Level of Care Code Est Pt Level 3 (70420) Diagnoses Encounter to discuss test results Z71.2 control counseling Z30.09 Hirsutism L68.0
== END 2022-12-26 16:17 | disposition home or self-care (01) ==
LOC: HO.HWS 15:37
PROVIDERS: PCP Nurse Practitioner Family; Visit Provider Advanced Practice Midwife
DX: Z71.2 Person consulting for explanation of examination or test findings (principal); Z30.09 Encounter for other general counseling and advice on contraception; L68.0 Hirsutism
CPT/HCPCS: 99213

== ENCOUNTER → 2022-12-26 15:37 | Outpatient (BNVA) | payer OTHER, SELFPAY | PROVIDERS: PCP Nurse Practitioner Family; Visit Provider Advanced Practice Midwife | DX: Z71.2 Person consulting for explanation of examination or test findings (principal); Z30.09 Encounter for other general counseling and advice on contraception; L68.0 Hirsutism | CPT/HCPCS: 99212 ==

== ENCOUNTER → 2022-12-27 13:54 | Outpatient (BNVA) | payer OTHER, SELFPAY | PROVIDERS: PCP Nurse Practitioner Family; Visit Provider Advanced Practice Midwife ==

== ENCOUNTER 2023-01-10 09:06 | Outpatient (REF) | payer OTHER, SELFPAY ==
[2023-01-10 09:49] LABS: Basophils Absolute Auto 0.1 X10*3/uL (0.0-0.2); Basophils Percent Auto 0.5 % (0-2); Eosinophils Absolute Auto 0.2 X10*3/uL (0.0-0.4); Eosinophils Percent Auto 1.9 % (0-4); Hematocrit 44.7 % (37.0-47.0); Hemoglobin 14.5 g/dl (12.0-16.0); Imm Gran Abs Auto 0.03 X10*3/uL (0.00-0.03); Imm Gran Pct Auto 0.3 % (0.0-0.4); Lymphocytes Absolute Auto 3.9 X10*3/uL (1.2-4.9); Lymphocytes Percent Auto 35.3 % (20-40); MANUAL DIFF FLAG SCAN; Mean Corpuscular HGB Conc 32.4 g/dl (31.0-35.0); Mean Corpuscular Hemoglobin 27.3 pg (27.0-33.0); Mean Corpuscular Volume 84.2 fL (80.0-98.0); Mean Platelet Volume 11.1 fL (9.4-12.3); Monocytes Absolute Auto 0.7 X10*3/uL (0.1-1.2); Monocytes Percent Auto 6.4 % (2-11); Neutrophils Absolute Auto 6.2 x10*3/uL (2.0-8.3); Neutrophils Percent Auto 55.6 % (45-73); PLT CLUMP 1; Red Blood Count 5.31 X10*6/uL (4.20-5.50); Red Cell Distribution Width 14.8 % (11.0-16.0); SCAN SMEAR FLAG 1; White Blood Count 11.2 X10*3/uL (4.8-10.8)
[2023-01-10 10:46] LABS: Alanine Aminotransferase 12 U/L (0-31); Albumin Level 4.1 g/dL (3.5-5.0); Alkaline Phosphatase 88 U/L (39-117); Anion Gap 12 (12-20); Aspartate Amino Transferase 12 U/L (5-31); Bilirubin Total 0.3 mg/dL (0.0-1.0); Blood Urea Nitrogen 7 mg/dL (9-16); Calcium 9.6 mg/dL (8.4-10.2); Carbon Dioxide 24 mmol/L (22-29); Chloride 109 mmol/L (96-108); Estimated Glomerular Filt Rate > 60; Glucose Random 81 mg/dL (60-115); Potassium 4.2 mmol/L (3.3-5.1); Sodium 141 mmol/L (135-145); Total Protein 7.5 g/dL (6.5-8.0)
[2023-01-10 11:02] LABS: Erythrocyte Sedimentation Rate 7 MM/HR (0-20)
[2023-01-10 11:22] LABS: Platelet Count 237 X10*3/uL (160-400)
[2023-01-10 11:23] LABS: SLIDE REVIEW VERIFIED
[2023-01-10 11:30] LABS: Rheumatoid Factor < 13.0 IU/mL (<15.0)
[2023-01-13 10:58] LABS: Cyclic Citrullinated Peptide <16 UNITS
[2023-01-14 15:58] LABS: Anti Nuclear Antibody Screen NEGATIVE (NEGATIVE)
== END 2023-01-10 09:07 | disposition home or self-care (01) ==
LOC: HO.LAB 09:06
PROVIDERS: PCP Internal Medicine; Visit Provider Internal Medicine
DX: Z00.00 Encounter for general adult medical examination without abnormal findings (principal); M25.542 Pain in joints of left hand; M22.2X1 Patellofemoral disorders, right knee; F32.9 Major depressive disorder, single episode, unspecified; E66.9 Obesity, unspecified; F12.988 Cannabis use, unspecified with other cannabis-induced disorder
CPT/HCPCS: 36415; 80053; 84443; 85025; 85652; 86038; 86200; 86431

== ENCOUNTER 2023-02-07 14:13 | Outpatient (AMB) | payer OTHER, SELFPAY ==
--- NOTE | 2023-02-07 14:27 | MHC.OFFVIS ---
Intake Vital Signs 02/07/23 14:38 Height 5 ft 5 in Weight 222 lb BMI 36.9 BP 108/58 L Intake Visit Reasons: 6 weeks IUD check Intake Note: Has been bleeding since insertion and having bad cramps The patient agreed to use of a medical transcriptionist during this encounter. Scribed for PEACE Thompson by Juli Moon medical transcriptionist, on 02/07/2023 at 2:50 pm EST. Salesperson Art Objects Required: No Information Interpreted: non-clinical & clinical Bottom Saw Operator: Bottom Saw Operator Present (Aidyn) Allergies No Known Allergies Allergy (Verified 02/07/23 14:40) Is last menstrual period known: No Post menopausal: No HPI HPI Comments History of Present Illness Details She is presenting for IUD check. She had the Mirena IUD placed on 12/27/22. Reports VB with pelvic pain on and off, to bleeding light, to bleeding heavy and sometimes non at all. She denies abnormal discharge. [facility] Medical History Breakthrough bleeding associated with intrauterine device (IUD) Irregular menses Hirsutism Low libido control counseling Morbid obesity Migraine with aura Family History Paternal Grandmother Breast cancer Maternal Grandfather Diabetes mellitus Social History Alcohol intake: never Sexual orientation: Straight/Heterosexual Gender identity: Female Female Reproductive History Menstrual Age of Menarche: 13 control method: progestin IUCD (Mirena 12/27/22, IUD strings visible 02/07/23) Total pregnancies: 2 Full term: 1 Number of Living Children: 1 Ab spontaneous: 1 Date of last pap smear: 07/28/21 (negative) Physical Exam Vital Signs: Last Vital Signs BP 108/58 L 02/07/23 14:38 BMI result Body Mass Index 36.9 Const General: cooperative, healthy appearing, comfortable, no acute distress, well developed, alert and awake Other: General: Yes bladder normal to palpation External Female Exam: normal external appearance and normal appearance of the urethra Speculum Exam - Vagina: normal appearance of the vagina, normal palpation, normal vaginal discharge and other (blood present) Speculum Exam - Cervix: normal appearance of the cervix, normal palpation and Other cervical findings present (IUD strings visible) Bimanual exam- vagina & uterus: normal bimanual exam, normal palpation, bladder normal to palpation and normal palpation Bimanual Exam- Adnexa, other: normal adnexae and no masses Results AMB Test Urine AMB Test Urine Negative Last Edit by BIENVENIDO Chavez on 02/07/23 14:57 Results Reviewed Results Reviewed: Laboratory Last Values Tst Clinic Negative 02/07/23 14:56 Assessment & Plan Assessment & Plan (1) IUD surveillance: Code(s): Z30.431 - Encounter for routine checking of intrauterine contraceptive device Plan: Discussed: Bleeding tends to taper down, some women do not bleed at all for months, some have unscheduled and random bleeding. Monitor bleeding and cramps for the next 1-2 months and contact office with any concerns or questions. All of her questions and concerns were addressed to the best of my ability and shared decision making. She is agreeable to plan of care. (2) Breakthrough bleeding associated with intrauterine device (IUD): Code(s): N92.1 - Excessive and frequent menstruation with irregular cycle; Z97.5 - Presence of (intrauterine) contraceptive device Orders: Orders AMB HCG Urine Test Today N92.1 - Excessive and frequent menstruation with irregular cycle, Z97.5 - Presence of (intrauterine) contraceptive device Coding Level of Care Code Est Pt Level 2 (48000) Diagnoses IUD surveillance Z30.431 Breakthrough bleeding associated with intrauterine device (IUD) N92.1; Z97.5
[2023-02-07 14:38] VITALS: BP 108/58; BMI 36.9
== END 2023-02-07 14:59 | disposition home or self-care (01) ==
PROVIDERS: PCP Nurse Practitioner Family; Visit Provider Advanced Practice Midwife
DX: Z30.431 Encounter for routine checking of intrauterine contraceptive device (principal); N92.1 Excessive and frequent menstruation with irregular cycle
CPT/HCPCS: 99212

== ENCOUNTER → 2023-02-07 14:13 | Outpatient (BNVA) | payer OTHER, SELFPAY | PROVIDERS: PCP Nurse Practitioner Family; Visit Provider Advanced Practice Midwife | DX: Z30.431 Encounter for routine checking of intrauterine contraceptive device (principal); N92.1 Excessive and frequent menstruation with irregular cycle | CPT/HCPCS: 81025; 99212 ==

== ENCOUNTER 2023-12-10 08:46 | Outpatient (REF) | payer OTHER, SELFPAY ==
[2023-12-10 10:55] LABS: Alanine Aminotransferase 17 U/L (0-31); Albumin Level 4.2 g/dL (3.5-5.0); Alkaline Phosphatase 86 U/L (39-117); Anion Gap 15 (12-20); Aspartate Amino Transferase 12 U/L (5-31); Bilirubin Total 0.2 mg/dL (0.0-1.0); Blood Urea Nitrogen 7 mg/dL (9-16); Calcium 9.2 mg/dL (8.4-10.2); Carbon Dioxide 23 mmol/L (22-29); Chloride 108 mmol/L (96-108); Cholesterol 191 mg/dL (<200); Estimated Glomerular Filt Rate > 60; Glucose Random 85 mg/dL (60-115); HDL Cholesterol 32 mg/dL (>40); LDL Cholesterol Calculated 144 mg/dL (<100); Sodium 142 mmol/L (135-145); Total Protein 7.6 g/dL (6.5-8.0); Triglycerides 77 mg/dL (<150)
[2023-12-10 11:15] LABS: Thyroid Stimulating Hormone 0.67 uIU/mL (0.32-4.0)
== END 2023-12-10 08:47 | disposition home or self-care (01) ==
LOC: HO.LAB 08:46
PROVIDERS: PCP Internal Medicine; Visit Provider Internal Medicine
DX: E66.9 Obesity, unspecified (principal); H68.109 Unspecified obstruction of Eustachian tube, unspecified ear; H81.10 Benign paroxysmal vertigo, unspecified ear; I10 Essential (primary) hypertension
CPT/HCPCS: 36415; 80053; 80061; 84443

== ENCOUNTER 2024-01-22 10:25 | Outpatient (AMB) | payer OTHER, SELFPAY ==
--- NOTE | 2024-01-22 10:26 | A.OFFVIS_ITS ---
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 Doing well with concerns: Regular monthly menses, has cramping most of the month and some itching, odor. Used OTC med 3 months ago. She tries to eat healthy and stays active with exercise. Currently is sexually active. STI screening offered; she accepts. Denies family history of ovarian or colon cancer. breast cancer-PGM. Last pap smear 2021, negative. [facility] Medical History (Updated 01/22/24 @ 10:57 by Charley Thomas CNM) Hirsutism Morbid obesity Migraine with aura Family History Paternal Grandmother Breast cancer Maternal Grandfather Diabetes mellitus Social History (Updated 01/22/24 @ 10:32 by BIENVENIDO Young) Alcohol intake: never Patient Tobacco Use Status: Never used Tobacco Sexual orientation: Straight/Heterosexual Gender identity: Female Female Reproductive History Menstrual Age of Menarche: 13 Duration of menses: 6-7 days (bleeding 5-6 days, then spotting 5-6 days, cramping week before) Date of last menstrual period: 01/09/24 control method: progestin IUCD (Mirena 12/2022) Total pregnancies: 2 Full term: 1 Number of Living Children: 1 Date of last pap smear: 07/27/21 (neg pap and hpv) Review of Systems Const All systems reviewed & are unremarkable except as noted in HPI and below Reports as per HPI Eyes Reports no additional complaints ENT Reports no additional complaints Card Reports no additional complaints Resp Reports no additional complaints GI Reports as per HPI and Reports no additional complaints Reports as per HPI Musc Reports no additional complaints Skin/Breast Reports as per HPI Neuro Reports no additional complaints Psych Reports no additional complaints Endo Reports no additional complaints Lyndon/Lymph Reports no additional complaints Aller/Immun Reports no additional complaints Physical Exam Vital Signs: Last Vital Signs BP 102/66 01/22/24 10:27 BMI result Body Mass Index 37.9 Const General: cooperative, healthy appearing, no acute distress, well developed and alert Orientation/consciousness: patient oriented x3 HEENT Head: Yes normal to inspection Eyes General: appearance normal, both eyes and all related structures Neck Neck: Yes normal visual inspection Thyroid: Thyroid normal Chest Chest palpation & inspection: normal inspection of the chest and other (no puckering, dimpling, peau de orange, retraction, discharge, masses) Breast/axilla inspection: normal inspection of the breasts Breast/axilla palpation: normal palpation of the breasts Resp Effort & Inspection: normal respiratory effort GI Inspection: Yes normal to inspection Palpation (GI): Soft to palpation Rectal Exam - Female: deferred General: Yes bladder normal to palpation External Female Exam: normal external appearance and normal appearance of the urethra Speculum Exam - Vagina: normal appearance of the vagina, normal palpation and normal vaginal discharge Speculum Exam - Cervix: normal appearance of the cervix, normal palpation and Other cervical findings present (IUD strings at the os no tip palpable) Bimanual exam- vagina & uterus: normal bimanual exam, normal palpation, uterine size normal, bladder normal to palpation, normal palpation and non-tender Bimanual Exam- Adnexa, other: no masses Skin General skin exam: no rashes or lesions noted Rashes: no rashes Neuro General: patient oriented x3 Cognition (Neuro): normal cognition Extrem General: Yes normal to inspection Psych Attitude: cooperative Thought process: Normal thought process present Assessment & Plan Assessment & Plan (1) Encounter for well woman exam with routine gynecological exam: Code(s): Z01.419 - Encounter for gynecological examination (general) (routine) without abnormal findings Category: Medical (2) Encounter for annual routine gynecological examination: Code(s): Z01.419 - Encounter for gynecological examination (general) (routine) without abnormal findings Category: Medical (3) Vaginal odor: Code(s): N89.8 - Other specified noninflammatory disorders of vagina Plan Discussed: Current recommendations for pap smears per ASCCP guidelines. Breast awareness and periodic breast exams. Maintain a healthy lifestyle including a well balanced diet and routine exercise. Patient verbalizes understanding and agrees to the plan of care. She was given opportunity to ask questions and all questions were answered to the best of my ability. RTO in one year for annual ethnic origins teacher examination. This note is constructed using voice recognition software. While every effort has been made to ensure accuracy, rivet bucker errors may have been included. Orders: Orders HIV Ab/Ag Today Z20.2 - Contact with and (suspected) exposure to infections with a predominantly sexual mode of transmission Hepatitis C Antibody Reflex Today Z20.2 - Contact with and (suspected) exposure to infections with a predominantly sexual mode of transmission Hepatitis B Core Antibody Today Z20.2 - Contact with and (suspected) exposure to infections with a predominantly sexual mode of transmission Syphilis Screen Today Z20.2 - Contact with and (suspected) exposure to infections with a predominantly sexual mode of transmission Coding Level of Care Code Est Pt Prev Care 18-39y(15566) Diagnoses Encounter for well woman exam with routine gynecological exam Z01.419 Encounter for annual routine gynecological examination Z01.419 Vaginal odor N89.8
[2024-01-22 10:27] VITALS: BP 102/66; BMI 37.9
== END 2024-01-22 11:01 | disposition home or self-care (01) ==
LOC: HO.HWS 10:25
PROVIDERS: PCP Internal Medicine; Visit Provider Advanced Practice Midwife
DX: Z01.419 Encounter for gynecological examination (general) (routine) without abnormal findings (principal); N89.8 Other specified noninflammatory disorders of vagina
CPT/HCPCS: 99395

== ENCOUNTER 2024-01-22 10:25 | Outpatient (REF) | payer OTHER, SELFPAY | END 2024-01-22 10:26 | disposition home or self-care (01) | LOC: HO.LNP 10:25 | PROVIDERS: PCP Internal Medicine; Visit Provider Advanced Practice Midwife | DX: Z01.419 Encounter for gynecological examination (general) (routine) without abnormal findings (principal); N89.8 Other specified noninflammatory disorders of vagina; Z20.2 Contact with and (suspected) exposure to infections with a predominantly sexual mode of transmission | CPT/HCPCS: 99395 ==

== ENCOUNTER 2024-01-22 10:58 | Outpatient (REF) | payer OTHER, SELFPAY ==
[2024-01-22 12:43] LABS: Syphilis Screen Nonreactive (Nonreactive)
[2024-01-22 12:46] LABS: HBc Num1 0.09 S/CO (0.00-0.79); HIV AB/AG Nonreactive (Nonreactive); HIV Num 1 0.05 S/CO (0.00-0.99); Hepatitis B Core Antibody Nonreactive (Nonreactive); ~HepC Num1 0.09 S/CO (0.00-0.79); ~Hepatitis C Antibody Nonreactive (Nonreactive)
[2024-01-22 15:58] LABS: Bacterial Vaginosis PCR NEGATIVE (Negative); Candida Group PCR DETECTED (Not Detect); Candida glab krusei PCR NOT DETECTED (Not Detect); Trichomonas vaginalis PCR NOT DETECTED (Not Detect)
[2024-01-22 16:48] LABS: CT PCR NOT DETECTED (Not Detect.); NG PCR NOT DETECTED (Not Detect.)
== END 2024-01-22 10:59 | disposition home or self-care (01) ==
LOC: HO.LAB 10:58
PROVIDERS: PCP Internal Medicine; Visit Provider Advanced Practice Midwife
DX: N89.8 Other specified noninflammatory disorders of vagina (principal); Z20.2 Contact with and (suspected) exposure to infections with a predominantly sexual mode of transmission
CPT/HCPCS: 0352U; 86704; 86780; 86803; 87389; 87491; 87591

== ENCOUNTER 2024-10-26 10:27 | Outpatient (REF) | payer OTHER, SELFPAY ==
--- OUTSIDE RECORDS SUMMARY | 2024-10-26 11:41 | XMS_ITS | Clinical Summary ---
Author Organization [facility] Address [address] [place] [address] Care Team Providers Care Intervention Analyst Name Role Phone Unavailable Primary Care Provider Unavailabl e Surgical History Surgery Date Site/Laterality Comments OTHER SURGICAL HISTORY PROCEDURE: DENIES PREVIOUS SURGERY Medical History Medical History Date Comments Depression with anxiety DX:Depre ssion with anxiety; COMMENT: no current meds, counseling in the [facility] Family History Medical History Relation Name Comments Diabetes Maternal Grandmother Breast cancer Paternal Grandmother Relation Name Status Comments Father Maternal Grandfather Alive Maternal Grandmother Alive Mother Alive Paternal Grandfather Paternal Grandmother Alive Social History Tobacco Use Types Packs/Day Years Used Date Smoking Tobacco: Never Smokeless Tobacco: Never Alcohol Use Standard Drinks/Week Comments No 0 (1 standard drink = 0.6 oz pur e alcohol) Comments Unknown Sex and Gender Information Value Date Recorded Sex Assigned at Not on file Legal Sex Female 12:37 PM EST Gender Identity Not on file Sexual Orientation Not on file Obstetrics History Plan of Treatment Health Maintenance Due Date Last Done Comments DTaP,Tdap,and Td Vaccines (1 - Tdap) 07/18/2010 Hepatitis B Vaccines (1 of 3 - 19+ 3-dose series) 07/18/2010 Cervical Cancer Screening: P ap Smear 07/18/2012 COVID-19 Vaccine ( - 2023-2 5 season) 2024 Influenza Vaccine (Season Ended) 2025 HIB Vaccines Aged Out No longer eligi ble based on patient's age to complete this topic HPV Vaccines Aged Out No longer eligi ble based on patient's age to complete this topic Hepatitis A Vaccines Aged Out No long er eligible based on patient's age to complete this topic IPV Vaccines Aged Out No longer eligi ble based on patient's age to complete this topic MMR Vaccines Aged Out No longer eligi ble based on patient's age to complete this topic Meningococcal ACWY Vaccine Aged Out N o longer eligible based on patient's age to complete this topic Meningococcal B Vaccine Aged Out No l onger eligible based on patient's age to complete this topic Pneumococcal Vaccine: Pediat rics (0 to 5 Years) and At-Risk Patients (6 to 64 Years) Aged Out No longer eligible b ased on patient's age to complete this topic RSV Immunization Patients Un reynold 20 months Aged Out No longer eligible b ased on patient's age to complete this topic Varicella Vaccines Aged Out No longer eligible based on patient's age to complete this topic
[2024-10-26 12:05] LABS: Alanine Aminotransferase 13 U/L (0-31); Albumin Level 4.4 g/dL (3.5-5.0); Alkaline Phosphatase 73 U/L (39-117); Anion Gap 11 (12-20); Aspartate Amino Transferase 15 U/L (5-31); Bilirubin Total 0.4 mg/dL (0.0-1.0); Blood Urea Nitrogen 10 mg/dL (9-16); Calcium 9.1 mg/dL (8.4-10.2); Carbon Dioxide 24 mmol/L (22-29); Chloride 111 mmol/L (96-108); Cholesterol 159 mg/dL (<200); Estimated Glomerular Filt Rate > 60; Glucose Random 67 mg/dL (60-115); HDL Cholesterol 32 mg/dL (>40); LDL Cholesterol Calculated 115 mg/dL (<100); Potassium 3.9 mmol/L (3.3-5.1); Sodium 142 mmol/L (135-145); Total Protein 7.2 g/dL (6.5-8.0); Triglycerides 61 mg/dL (<150)
[2024-10-27 06:28] LABS: Mumps Virus IgG Antibody <9.00 AU/mL
[2024-10-29 18:09] LABS: TS Negative Control Passed; TS Panel A 0; TS Panel B 1; TS Positive Control Passed; TSpotTB Negative (Negative)
== END 2024-10-26 10:28 | disposition home or self-care (01) ==
LOC: HO.LAB 10:27
PROVIDERS: PCP Internal Medicine; Visit Provider Internal Medicine
DX: E66.9 Obesity, unspecified (principal); E78.00 Pure hypercholesterolemia, unspecified; Z11.1 Encounter for screening for respiratory tuberculosis
CPT/HCPCS: 36415; 80053; 80061; 86481; 86735